=== PATIENT | female | born 1960 | race American Indian/Alaskan Native ===

== ENCOUNTER 2017-06-28 16:30 | Emergency (ER) | payer MEDICARE ==
[2017-06-28 16:37] VITALS: BMI 35.5
[2017-06-28] MEDS ORDERED: Sodium Chloride 0.9% 1,000 ML IV STA (16:57)
--- NOTE | 2017-06-28 17:02 | CT ---
PROCEDURE: CT HEAD WITHOUT CONTRAST. HISTORY: MC/slurr, lower BP, no neuro deficit COMPARISON: None available. TECHNIQUE: Axial computed tomography images were obtained through the head/brain without intravenous contrast. Radiation dose: Total exam DLP = 1104.57 mGy-cm. This CT exam was performed using one or more of the following dose reduction techniques: Automated exposure control, adjustment of the mA and/or kV according to patient size, and/or use of iterative reconstruction technique. FINDINGS: HEMORRHAGE: No intracranial hemorrhage. BRAIN: No mass effect or edema. 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 No atrophy or chronic microvascular ischemic changes. VENTRICLES: Unremarkable. No hydrocephalus. CALVARIUM: Left temporal frontal craniectomy/ craniotomy changes are noted. PARANASAL SINUSES: Unremarkable as visualized. No significant inflammatory changes. MASTOID AIR CELLS: Unremarkable as visualized. No inflammatory changes. OTHER FINDINGS: Right frontal scalp soft tissue swelling. IMPRESSION: No evidence of acute intracranial hemorrhage intracranial collection mass effect or midline shift. Postsurgical changes suggestive of prior aneurysmal clip insertion at the left suprasellar region. Right frontal scalp soft tissue swelling.
[2017-06-28 17:04] VITALS: TEMP 98.2
[2017-06-28] MEDS ORDERED: Sodium Chloride 0.9% 1,000 ML ONE (17:07)
[2017-06-28 17:16] LABS: BASO % 0.3 % (0.0-2.0); EOS # 0.1 K/uL (0.0-0.7); HEMATOCRIT 38.1 % (34.0-47.0); LYMPH # 1.7 K/uL (1.0-4.3); LYMPH % 35.6 % (20.0-40.0); MEAN CELL VOLUME 87.1 fL (81.0-99.0); MEAN CORPUSCULAR HEMOGLOBIN 29.9 pg (27.0-31.0); MEAN CORPUSCULAR HGB CONC 34.3 g/dL (33.0-37.0); MEAN PLATELET VOLUME 6.5 fL (7.2-11.7); MONO # 0.4 K/uL (0.0-0.8); MONO % 7.9 % (0.0-10.0); NRBC % 0.2 % (0.0-2.0); RED CELL DISTRIBUTION WIDTH 13.8 % (11.5-14.5); WHITE BLOOD COUNT 4.8 K/uL (4.8-10.8)
[2017-06-28 17:28] LABS: CHLORIDE 102 mmol/L (98-107); POTASSIUM 3.4 mmol/L (3.6-5.2); SODIUM 141 mmol/L (132-148)
[2017-06-28 17:30] LABS: ALB/GLOB RATIO 1.2 (1.0-2.1); AST/SGOT 21 U/L (14-36); BILIRUBIN,TOTAL 0.6 mg/dL (0.2-1.3); BLOOD UREA NITROGEN 11 mg/dL (7-17); CARBON DIOXIDE 28 mmol/L (22-30); CHOLESTEROL 206 mg/dL (0-199); GFR AFRICAN-AMERICAN > 60; TOTAL PROTEIN 6.8 g/dL (6.3-8.3)
[2017-06-28 17:31] LABS: ALKALINE PHOSPHATASE 87 U/L (38-126); ALT/SGPT 32 U/L (9-52); CALCIUM 8.8 mg/dl (8.6-10.4); GLUCOSE,RANDOM 115 mg/dL (65-105)
[2017-06-28 18:15] VITALS: O2SAT 96
--- NOTE | 2017-06-28 18:15 | C.PDOC ---
History Of Present Illness 56 year old female was brought to the emergency department by EMS with complaints of brief change in mental status. Patient states she was having lunch at a [place] restaurant and after walking outside began to feel abdominal pain, nausea, vomiting, and dizziness. She then had a brief syncopal episode with right facial contusion. Patient notes a brain aneurism with clip in September [address] Danie Montague in [facility]. She denies fever, post- ictal phase, and seizure activity. Time Seen by Provider: 06/28/17 16:36 Chief Complaint (Nursing): Weakness/Neurological Deficit History Per: Patient, EMS History/Exam Limitations: no limitations Onset/Duration Of Symptoms: Hrs Current Symptoms Are (Timing): Still Present Activity At Onset Of Symptoms: Walking Seizure Or Post-ictal Symptoms: None Fall Associated With With Symptoms: No Recent travel outside of the [place]: No Past Medical History Reviewed: Historical Data, Nursing Documentation, Vital Signs Vital Signs: Last Vital Signs Temp 98.2 F 06/28/17 16:55 Pulse 59 L 06/28/17 18:20 Resp 20 06/28/17 18:20 BP 141/72 06/28/17 18:20 Pulse Ox 96 06/28/17 18:20 - Medical History PMH: HTN Family History: States: Unknown Family Hx - Social History Hx Alcohol Use: No Hx Substance Use: No Review Of Systems Constitutional: Negative for: Fever, Chills Cardiovascular: Negative for: Chest Pain Respiratory: Negative for: Shortness of Breath Gastrointestinal: Positive for: Nausea, Vomiting, Abdominal Pain Skin: Positive for: Other (right facial contusion) Neurological: Positive for: Altered Mental Status, Dizziness, Other (brief syncopal episode ). Negative for: Weakness, Numbness, Seizures Physical Exam - Physical Exam Appears: Non-toxic, No Acute Distress, Other (patient notes nausea on exam ) Skin: Warm, Dry Head: No Laceration, Other (right facial contusion) Eye(s): bilateral: Normal Inspection, PERRL, EOMI Oral Mucosa: Moist Neck: Supple Chest: Symmetrical, No Deformity Cardiovascular: Rhythm Regular Respiratory: Normal Breath Sounds, No Rhonchi, No Wheezing Gastrointestinal/Abdominal: Soft, No Tenderness, No Distention, No Guarding, No Rebound, Other (patient notes abdominal discomfort on exam ) Extremity: Normal ROM, No Tenderness Neurological/Psych: Oriented x3, Normal Speech, Normal Cognition, Normal Cranial Nerves, Normal Motor, Normal Sensation ED Course And Treatment - Laboratory Results Result Diagrams: 06/28/17 17:10 06/28/17 17:10 Lab Interpretation: Normal ECG: Interpreted By Me ECG Rhythm: Sinus Rhythm ECG Interpretation: Normal Rate From EC O2 Sat by Pulse Oximetry: 96 (room air ) Pulse Ox Interpretation: Normal - Radiology CXR: Interpreted by Me CXR Interpretation: Yes: No Acute Disease Progress Note: toradol, IVF, zofran, pepcid, Reevaluation Time: 18:13 Reassessment Condition: Improved (taking liberal PO fluids, feels better.) - Physician Consult Information Outcome Of Conversation: from [id number]: multiple failed attempts to contact pt's Neurologist by RN. pt rapidly improved, very vocal, enthusiastic, neurologically intact at all times. NIHSS Stroke Scale - Date/Time Evaluation Performed Date Performed: 06/28/17 Time Performed: 16:35 When Was NIHSS Performed: Baseline - How Severe is the [place]oke Level of Consciousness: 0=Alert LOC to Questions: 0=Both comments correct LOC to commands: 0=Obeys both correctly Best Gaze: 0=Normal Visual: 0=No visual loss Facial: 0=Normal Motor Arm - Left: 0=No drift Motor Arm - Right: 0=No drift Motor Leg - Left: 0=No drift Motor Leg - Right: 0=No drift Limb Ataxia: 0=Absent Sensory: 0=Normal Best Language: 1=Mild to moderate aphasia Dysarthia: 0=Normal articulation Extinction & Inattention (Neglect): 0=Normal, no object Score: 1 Severity Of Stroke: 1-4= Minor Stroke rTPA Inclusion/Exclusion - Refusal of Treatment Patient Refused Treatment: No - Inclusion Criteria for Altepase Patient is 18 years or Older: Yes The Clinical Diagnosis of Ischemic Stroke That is Causing a Potentially Disabling Neurological Deficit: No Time of Onset is Well Established to be Less Than 270 Minute Before Treatment Would Begin: Yes Risk/Benefit Discussed With Patient/Family Member Present: No - Exclusion Criteria for Altepase Uncontrolled Hypertension at Time of Treatment (Systolic BP above 185 or Diastolic BP above 110 mmHg): No History of: Brain Aneurysm Active Internal Bleeding: No Known Bleeding Diathesis Including but Not Limited to: Platelets Below 100,000/ mm,PTT Above 40 sec After Heparin Use, Current Use of Oral Anitcoagulant With INR Greater Than 1.7 or PT Greater Than 15 secs: No Evidence of an Intracranial Hemorrhage: No Evidence of Major Acute Infarct With Signs Greater Than 1/3 MCA Territory: No Suspicion of Subarachnoid Hemorrhage on Pretreatment Evaluation Even if CT Head Negative For Hemorrhage: No - Warning to TPA With Conditions Condition: Rapid Improvement Medical Decision Making Medical Decision Making: more likely food intolerance w abd discomfort, n/v/d and vaso-vagal syncope with R facial contusion and transient LOC with no post-icatl phase nor seizure activity. Code Stroke w/u neg, Head CT neg- notes old sugical clip from aneurysm 09/16 ok to d/c home with opt f/u with her neurologist. Food precautions educated. Disposition Doctor Will See Patient In The: Office Counseled Patient/Family Regarding: Studies Performed, Diagnosis - Disposition Referrals: [facility] [Outside] Disposition: HOME/ ROUTINE Disposition Time: 18:16 Condition: GOOD Additional Instructions: please follow-up with your Neurologist [place] diet and plenty of fluids today Instructions: Syncope (ED), Gastroenteritis (ED), Food Poisoning (ED) Forms: [employer] (Slovenian) - Clinical Impression Clinical Impression: Gastroenteritis, Vasovagal episode, Facial contusion - Scribe Statement The provider has reviewed the documentation as recorded by the Scribe Phyllis Rodriguez All medical record entries made by the Scribe were at my direction and personally dictated by me. I have reviewed the chart and agree that the record accurately reflects my personal performance of the history, physical exam, medical decision making, and the department course for this patient. I have also personally directed, reviewed, and agree with the discharge instructions and disposition.
--- NOTE | 2017-06-28 18:23 | RAD ---
HISTORY: code stroke COMPARISON: No prior. FINDINGS: LUNGS: The lungs are well inflated and clear. PLEURA: No significant pleural effusion identified, no pneumothorax apparent. CARDIOVASCULAR: Normal. OSSEOUS STRUCTURES: No significant abnormalities. VISUALIZED UPPER ABDOMEN: Normal. OTHER FINDINGS: None. IMPRESSION: No active pulmonary disease.
[2017-06-28 18:44] VITALS: BP 141/72; PULSE 59; RESP 20
--- NOTE | 2017-07-01 14:38 | CARD ---
APPROVED REPORT EKG Measurement Heart [id number] CT [id number] <Conclusion> Sinus bradycardia Cannot rule out Anterior infarct, age undetermined Abnormal ECG
== END 2017-06-28 18:40 | disposition home or self-care (01) ==
LOC: C.ER 16:30
DX: K52.9 Noninfective gastroenteritis and colitis, unspecified (principal); R55 Syncope and collapse; S00.83XA Contusion of other part of head, initial encounter; X58.XXXA Exposure to other specified factors, initial encounter; I10 Essential (primary) hypertension
CPT/HCPCS: 70450; 71010; 80053; 80061; 82948; 83036; 84484; 84703; 85025; 85610; 85730; 93005; 96361; 96374; 96375; 99285; J1885; J2405; J7040